=== PATIENT | female | born 1985 | race Caucasian/White ===

== ENCOUNTER 2018-07-28 17:21 | Emergency (ER) | payer OTHER ==
[2018-07-28] MEDS ORDERED: IOVERSOL 320 100 ML VIAL IVP ONE ×2 (17:22→20:47)
[2018-07-28 18:06] LABS: BILIRUBIN,URINE NEGATIVE (NEGATIVE); GLUCOSE, URINE (UA) NEGATIVE (NEGATIVE); KETONES,URINE (UA) TRACE mg/dL (NEGATIVE); LEUKOCYTE ESTERASE, URINE TRACE (NEGATIVE); NITRITE,URINE POSITIVE (NEGATIVE); OCCULT BLOOD,URINE LARGE (NEGATIVE); PH,URINE 5.5 PH (5.0-7.5); PROTEIN,URINE 100 mg/dL (NEGATIVE); UROBILINOGEN,URINE 0.2 (NORMAL) E.U./dL (NORMAL)
[2018-07-28 18:09] LABS: CLARITY,URINE HAZY (CLEAR); HCG UR QUAL NEGATIVE
[2018-07-28 18:19] LABS: BACTERIA,URINE Many /HPF (None Seen); SQUAMOUS EPITHELIAL CELL,UR NONE SEEN (<= Few); WBC CLUMPS,URINE PRESENT
[2018-07-28] MEDS: SODIUM CHLORIDE 0.9% 1,000 ML IV ONE (18:35)
[2018-07-28 18:39] LABS: BASOPHILS % (AUTO) 0.5 %; EOSINOPHILS # (AUTO) 0.1 10^3/uL (0.0-0.7); EOSINOPHILS % (AUTO) 1.6 %; HGB - HEMOGLOBIN 12.4 g/dL (12.0-16.0); LYMPHOCYTES # (AUTO) 1.8 10^3/uL (1.5-3.5); LYMPHOCYTES % (AUTO) 20.4 %; MEAN CORPUSCULAR HEMOGLOBIN 32.7 pg (27.0-31.0); MEAN CORPUSCULAR HGB CONC 33.4 g/dL (32.0-36.0); MEAN CORPUSCULAR VOLUME 97.8 fL (81.0-99.0); MEAN PLATELET VOLUME 8.4 fL (7.9-10.8); MONOCYTES # (AUTO) 0.8 10^3/uL (0.0-1.0); MONOCYTES % (AUTO) 8.9 %; NEUTROPHILS % (AUTO) 68.6 %; PLT - PLATELET COUNT 214 10^3/uL (130-450); RED BLOOD COUNT 3.79 10^6/uL (4.20-5.40); RED CELL DISTRIBUTION WIDTH 12.2 % (12.0-15.0); WHITE BLOOD COUNT 8.7 x10^3/uL (4.8-10.8)
[2018-07-28] MEDS: KETOROLAC 60 MG/2 ML VIAL IVP STA (18:49)
--- NOTE | 2018-07-28 18:51 | ED Physician Documentation ---
PD HPI FEMALE - Stated complaint Stated Complaint: ABD PX - Chief complaint Chief Complaint: Abd Pain - History obtained from History obtained from: Patient - History of Present Illness Timing - onset: Yesterday Timing - duration: Days (1) Timing - details: Abrupt onset, Still present Pain level max: 8 Pain level max: 8 Associated symptoms: Back pain, Urinary frequency. 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 Here with complaint of cloudy urine and frequency yesterday. Today about 4 PM she has right flank pain which had increased in intensity and constant. Denies any fever, nausea, vomiting. Denies trauma, travel or sick contact. Review of Systems Ten Systems: 10 systems reviewed and negative Constitutional: denies: Fever, Chills GI: denies: Abdominal Pain, Nausea, Vomiting, Diarrhea : reports: Frequency, Other (Foul-smelling urine). 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 - Present Medications Home Medications: Ambulatory Orders Medication Instructions Recorded Confirmed Acutane 20 mg PO BID 07/28/18 07/28/18 Cephalexin [Keflex] 500 mg PO TID 7 Days #21 capsule 07/28/18 - Allergies Allergies/Adverse Reactions: Allergies Allergy/AdvReac Type Severity Reaction Status Date / Time No Known Drug Allergies Allergy Verified 07/28/18 17:45 - Social History Does the pt smoke?: No Smoking Status: Never smoker Does the pt drink ETOH?: Yes Does the pt have substance abuse?: No PD ED PE NORMAL - Vitals Vital signs reviewed: Yes - General General: Alert and oriented X 3, No acute distress, Well developed/nourished - HEENT HEENT: Moist mucous membranes - Neck Neck: Supple, no meningeal sign - Cardiac Cardiac: RRR, No murmur - Respiratory Respiratory: No respiratory distress, Clear bilaterally - Abdomen Abdomen: Normal bowel sounds, Soft, Non tender, Non distended - Back Back: Other (Mild right flank pain to percussion). No: No spinal TTP - Derm Derm: Normal color, Warm and dry - Extremities Extremities: No deformity - Neuro Neuro: Alert and oriented X 3 - Psych Psych: Normal mood, Normal affect Results - Vitals Vitals: Vital Signs - 24 hr 07/28/18 17:35 Temperature 36.8 C Heart Rate 79 Respiratory 16 Rate Blood Pressure 130/86 H O2 Saturation 99 Oxygen O2 Source Room air - Labs Labs: Laboratory Tests 07/28/18 07/28/18 07/28/18 18:01 18:32 18:32 WBC 8.7 RBC 3.79 L Hgb 12.4 Hct 37.1 MCV 97.8 MCH 32.7 H MCHC 33.4 RDW 12.2 Plt Count 214 MPV 8.4 Neut # (Auto) 6.0 Lymph # (Auto) 1.8 [place] # (Auto) 0.8 Eos # (Auto) 0.1 Baso # (Auto) 0.0 Absolute Nucleated RBC 0.01 Nucleated RBC % 0.1 Sodium 137 Potassium 3.9 Chloride 104 Carbon Dioxide 25 Anion Gap 8.0 BUN 12 Creatinine 0.5 Estimated GFR (MDRD) 142 Glucose 94 Calcium 8.9 Total Bilirubin 0.7 AST 22 ALT 15 Alkaline Phosphatase 49 Total Protein 8.1 Albumin 4.6 Globulin 3.5 Albumin/Globulin Ratio 1.3 Lipase 34 Urine Color YELLOW Urine Clarity HAZY Urine pH 5.5 Ur Specific [place] >=1.030 H Urine Protein 100 H Urine Glucose (UA) NEGATIVE Urine Ketones TRACE Urine Occult Blood LARGE H Urine Nitrite POSITIVE H Urine Bilirubin NEGATIVE Urine Urobilinogen 0.2 (NORMAL) Ur Leukocyte Esterase TRACE H Urine RBC 11-25 H Urine WBC >25 H Urine WBC Clumps PRESENT Ur Squamous Epith Cells NONE SEEN Urine Bacteria Many H Ur Microscopic Review INDICATED Urine Culture Comments INDICATED Urine HCG, Qual NEGATIVE PD MEDICAL DECISION MAKING - ED course Complexity details: reviewed results, re-evaluated patient, considered differential (Kidney stone, pyelonephritis, UTI, muscle strain.), d/w patient, d/w family ED course: 1920 patient states no right flank pain. Inform of positive urinalysis. Agreed to CT scan. 2151 patient in no acute distress and nontoxic appearing updated on CT scan result. We will give the first dose of Rocephin here and discharged on Keflex. Departure - Departure Disposition: 01 Home, Self Care Clinical Impression: Cystitis, Acute right flank pain Condition: Stable Instructions: ED UTI Cystitis Female, ED Flank Pain Uncertain Cause Prescriptions: Cephalexin [Keflex] 500 mg PO TID 7 Days #21 capsule Comments: Drinks 6-8 glasses of water a day. Take the Keflex antibiotic as prescribed. OTC Tylenol or Motrin for pain. Follow-up with your primary doctor in 1 week. If worse return to the emergency room.
[2018-07-28 18:53] LABS: ALBUMIN 4.6 g/dL (3.2-5.5); ALBUMIN/GLOBULIN RATIO 1.3 (1.0-2.2); BILIRUBIN,TOTAL 0.7 mg/dL (0.2-1.0); CALCIUM 8.9 mg/dL (8.5-10.3); CREATININE 0.5 mg/dL (0.4-1.0); TOTAL PROTEIN 8.1 g/dL (6.7-8.2)
[2018-07-28] MEDS: IOVERSOL 320 100 ML VIAL IVP ONE (21:06)
--- NOTE | 2018-07-28 21:25 | CT Report ---
Reason: right flank pain, uti Procedure Date: 07/28/2018 Accession Number: [id number] / [id number] Procedure: CT - Abdomen/Pelvis W/ CPT Code: FULL RESULT: EXAM: CT ABDOMEN AND PELVIS EXAM DATE: 07/28/2018 09:05 PM. CLINICAL HISTORY: Right flank pain, uti. COMPARISONS: None available. TECHNIQUE: Routine helical CT imaging was performed through the abdomen and pelvis. IV contrast: OPTIRAY 320 100mL. Enteric contrast: No. Reconstructions: Coronal and sagittal. In accordance with CT protocol optimization, one or more of the following dose reduction techniques were utilized for this exam: automated exposure control, adjustment of mA and/or KV based on patient size, or use of iterative reconstructive technique. FINDINGS: Lung Bases: Unremarkable. Liver: Normal. No masses. Gallbladder/Bile Ducts: Unremarkable. Spleen: Normal. Pancreas: Normal. Adrenal Glands: Normal. Kidneys: Normal. No masses or hydronephrosis. Peritoneal Cavity/Bowel: Nonobstructive bowel gas pattern. The appendix is only partially visualized with the visualized portions appear normal. No pericecal inflammatory changes. Large volume stool. Trace ascites. No free intraperitoneal air. Pelvic Organs: Tampon in the vagina. The urinary bladder wall is mildly thickened. Vasculature: No aneurysms or other significant abnormality. Bones: There are bilateral pars interarticularis defects at L5 without significant spondylolisthesis. Other: Bilateral breast implants partially visualized. IMPRESSION: Circumferential urinary bladder wall thickening may be secondary to cystitis. No evidence of obstructive uropathy. No CT evidence of pyelonephritis. Bilateral pars interarticularis defects at L5 without significant spondylolisthesis. [facility]
[2018-07-28] MEDS: cefTRIAXone 1 GM VIAL IVP STA (21:56)
[2018-07-28 21:57] VITALS: BP 122/71
== END 2018-07-28 22:04 | disposition home or self-care (01) ==
LOC: ED 17:21
DX: M54.9 Dorsalgia, unspecified (principal); R35.0 Frequency of micturition; N30.90 Cystitis, unspecified without hematuria
CPT/HCPCS: 36415; 74177; 80053; 81001; 81003; 81025; 83690; 85025; 87086; 87181; 96361; 96374; 96375; 99283